=== PATIENT | female | born 1950 | race Caucasian/White ===

== ENCOUNTER 2017-07-13 13:38 | Emergency (ER) | payer MEDICARE ==
[~2017-07-13] VITALS: Ht 147.3 cm; Wt 69.5 kg
[2017-07-13 13:39] VITALS: BP 151/76; PULSE 96; RESP 16; TEMP 98.6; O2SAT 95
[2017-07-13] MEDS ORDERED: LIPI40TA PO (14:19)
[2017-07-13] MEDS ORDERED: HORMONE PILL (14:19)
[2017-07-13] MEDS ORDERED: NEXI20CA PO (14:19)
[2017-07-13] MEDS ORDERED: ZOCO10TA PO (14:19)
[2017-07-13] MEDS ORDERED: GABA100C4 PO (14:22)
[2017-07-13] MEDS ORDERED: GABA300C5 PO (14:22)
--- NOTE | 2017-07-13 14:33 | PD ---
HPI Chief Complaint: Hypertension Time Seen by Provider: 14:11 Travel History International Travel<30 days: No Contact w/Intl Traveler<30days: No Traveled to known affect area: No History of Present Illness HPI 66 yo F c/o hypertension at home. She reports her blood pressure was 200/110 using a home BP cuff. She reports bitemporal cephalgia. She reports using steroid shots is no numbness tingling or weakness. No loss consciousness. Chest pain shortness of breath. Blood pressure upon arrival 154/76. Patient denies history of hypertension. PFSH Past Medical History High Cholesterol: Yes Diminished Hearing: No Tetanus Vaccination: Unknown ?: Not Past Surgical History Surgical History: No Previous Surgery Social History Alcohol Use: Yes (RARE) Tobacco Use: No Substance Use: No Allergies-Medications (Allergen,Severity, Reaction): Coded Allergies: No Known Allergies (Verified Allergy, Unknown, 07/13/17) Reported Meds & Prescriptions Reported Meds & Active Scripts Active Reported Gabapentin 100 Mg Cap 100 Mg PO TID Nexium (Esomeprazole DR) 20 Mg Capdr 20 Mg PO DAILY Zocor (Simvastatin) 10 Mg Tab 10 Mg PO DAILY [Hormone Pill] Lipitor (Atorvastatin Calcium) 40 Mg Tab 40 Mg PO HS Review of Systems Except as stated in HPI: all other systems reviewed are Neg General / Constitutional: No: Fever, Chills Eyes: No: Blurred Vision Physical Exam Narrative GENERAL: 66-year-old female pleasant well-nourished well-developed no acute distress Vital Signs Date Time Temp Pulse Resp B/P (MAP) Pulse Ox O2 Delivery O2 Flow Rate FiO2 07/13/17 14:13 16 95 Room Air 07/13/17 13:39 98.6 96 16 151/76 (101) 95 SKIN: Warm and dry. HEAD: Atraumatic. Normocephalic. EYES: Pupils equal and round. No scleral icterus. No injection or drainage. ENT: No nasal bleeding or discharge. Mucous membranes pink and moist. NECK: Trachea midline. No JVD. CARDIOVASCULAR: Regular rate and rhythm. RESPIRATORY: No accessory muscle use. Clear to auscultation. Breath sounds equal bilaterally. GASTROINTESTINAL: Abdomen soft, non-tender, nondistended. Hepatic and splenic margins not palpable. MUSCULOSKELETAL: Extremities without clubbing, cyanosis, or edema. No obvious deformities. NEUROLOGICAL: Awake and alert. No obvious cranial nerve deficits. Motor grossly within normal limits. Five out of 5 muscle strength in the arms and legs. Normal speech. PSYCHIATRIC: Appropriate mood and affect; insight and judgment normal. Data Data Last Documented VS Vital Signs Date Time Temp Pulse Resp B/P (MAP) Pulse Ox O2 Delivery O2 Flow Rate FiO2 07/13/17 14:13 16 95 Room Air 07/13/17 13:39 98.6 96 151/76 (101) Orders Orders Ed Discharge Order (07/13/17 14:33) MDM Medical Decision Making Medical Screen Exam Complete: Yes Emergency Medical Condition: Yes Medical Record Reviewed: Yes Differential Diagnosis Cephalgia, migraine, subarachnoid hemorrhage, hypertensive urgency Narrative Course BP 150/70s. Pt ok for discharge home. Appointment with pearler MD is scheduled tomorrow, tomorrow in [place], [place]. Diagnosis Primary Impression: Headache Qualified Codes: R51 - Headache Additional Impression: Hypertension Qualified Codes: I10 - Essential (primary) hypertension Referrals: Soham Camp MD, Ryan R. MD Med/Other Pt SpecificInfo: Prescription(s) given Disposition: DISCHARGE HOME Condition: Stable Amadeo Recio MD Jul 13, 2017 14:33
== END 2017-07-13 14:57 | disposition home or self-care (01) ==
LOC: PHED 13:38
DX: I10 Essential (primary) hypertension (principal); R06.02 Shortness of breath; R07.9 Chest pain, unspecified; E78.00 Pure hypercholesterolemia, unspecified
CPT/HCPCS: 99281